=== PATIENT | male | born 1955 | race Caucasian/White ===

== ENCOUNTER 2019-06-05 09:36 | Day surgery (SDC) | payer BC ==
[~2019-06-05] VITALS: Ht 177.8 cm; Wt 92.3 kg
[2019-06-05] VITALS (7 sets, daily range): BP systolic 110–142; BP diastolic 43–75; PULSE 66–80; TEMP 97.4–98
[2019-06-05] MEDS ORDERED: ELIQUIS 5MG PO (11:18)
[2019-06-05] MEDS ORDERED: CELEXA 20MG20 MG/TAB PO (11:18)
[2019-06-05] MEDS ORDERED: TENORMIN 2525 MG/TAB PO (11:19)
[2019-06-05] MEDS ORDERED: OTEZLA PO (11:19)
[2019-06-05] MEDS ORDERED: ZYLOPRIM 300MG300 MG PO (11:20)
[2019-06-05] MEDS ORDERED: LIPITOR20 MG PO (11:20)
[2019-06-05] MEDS ORDERED: ZESTRIL 10MG10 MG PO (11:21)
[2019-06-05] MEDS ORDERED: JANUVIA 100MG100 MG PO (11:21)
[2019-06-05] MEDS ORDERED: VICTOZA6 MG/ML SQ (11:22)
--- NOTE | 2019-06-05 14:15 | NUR ---
Pts penis surgical dressing clean, dry and intact.
--- NOTE | 2019-06-05 14:15 | NUR ---
Pt returned via cart to [facility]. Report received from Zully PRE CODER. Pt A&O. VSS-see flowsheet. Pt has tolerated iced water. Denies pain or nausea. Given a muffin, ice cream and diet coke per request. Pt able to move BLE, reports numbness in his bottom, pelvic area and mildly in BLE. Side rails up, HOB elevated and call light in reach. , Esmer, brought to room.
--- NOTE | 2019-06-05 14:45 | NUR ---
Pt tolerated food and drink. Requesting to rest at this time. Reports still numbness to bottom, genitals, BLE and pelvis. Denies complaints or needs.
--- NOTE | 2019-06-05 15:59 | NUR ---
Pt reports continued numbness, some feeling in BLE, though bilateral heels completely numb. Attempted to stand per request. Pt unable to stand up straight or steady reporting he can't feel his heels at all. Pt lying back in bed with side rails up. present. Pt able to feel touch to toes, calves, thighs. Denies needs or complaints. Call light in reach. home management supervisor notified pt may need bed on floor to allow sensation to return prior to dc home.
--- NOTE | 2019-06-05 16:14 | NUR ---
Dr Calvin notified via cell phone at this time that pt will be transferring to 3rd floor until meets dc criteria to go home safely.
--- NOTE | 2019-06-05 16:27 | NUR ---
Report given to SHELBY Forbes on who will assume care for pt.
--- NOTE | 2019-06-05 16:45 | NUR ---
Pt taken via cart to bed in room 322-2. Pivot transfer to bed with SBA. Leidy RN in to see pt in room, present. Chart left at desk. Meal tray ordered.
--- NOTE | 2019-06-05 17:00 | NUR ---
States still has numbness in heels and buttocks from spinal. Took diet well.
--- NOTE | 2019-06-05 18:45 | NUR ---
Able to get out of bed without difficulty. Voided. VSS.
--- NOTE | 2019-06-05 19:15 | NUR ---
Pt. has met Discharge criteria. INT discontinued from lt. hand. Paper work reviewed with pt. Pt. voices understanding. Pt. escorted out by this nurse.
== END 2019-06-05 19:30 | disposition home or self-care (01) ==
LOC: SDCO 09:36
DX: N48.6 Induration penis plastica (principal); N52.1 Erectile dysfunction due to diseases classified elsewhere; I48.91 Unspecified atrial fibrillation; E11.9 Type 2 diabetes mellitus without complications; M10.9 Gout, unspecified; E78.5 Hyperlipidemia, unspecified; I10 Essential (primary) hypertension; E83.39 Other disorders of phosphorus metabolism; F43.10 Post-traumatic stress disorder, unspecified; L40.50 Arthropathic psoriasis, unspecified; M19.90 Unspecified osteoarthritis, unspecified site; Z79.01 Long term (current) use of anticoagulants; Z88.5 Allergy status to narcotic agent; Z88.0 Allergy status to penicillin; Z88.8 Allergy status to other drugs, medicaments and biological substances; Z83.3 Family history of diabetes mellitus; Z82.49 Family history of ischemic heart disease and other diseases of the circulatory system; Z79.4 Long term (current) use of insulin
CPT/HCPCS: J0690; J2250; J2405; J2704; J3010; J7030; J7040

== ENCOUNTER 2021-06-19 09:02 | Day surgery (SDC) | payer BC ==
[~2021-06-19] VITALS: Ht 177.8 cm; Wt 90.3 kg
[~2021-06-19 09:02] MED LIST: CELEXA 20MG20 MG/TAB PO; ELIQUIS 5MG PO; JANUVIA 100MG100 MG PO; LIPITOR20 MG PO; OTEZLA PO; TENORMIN 2525 MG/TAB PO; VICTOZA6 MG/ML SQ; ZESTRIL 10MG10 MG PO; ZYLOPRIM 300MG300 MG PO
[2021-06-19 10:02] LABS: BASO % 0.7 % (0.0-2.0); EOS # 0.1 K/mm3 (0.0-0.7); EOS % 2.6 % (0.0-4.0); GRAN # 2.3 K/mm3 (1.4-6.5); GRAN % 53.8 % (42.2-75.2); HEMATOCRIT 43.8 % (42.0-52.0); HEMOGLOBIN 15.2 g/dl (13.5-18.0); LYMPH # 1.4 K/mm3 (1.2-3.4); LYMPH % 32.9 % (20.0-51.0); MEAN CELL VOLUME 88 fl (80.0-100.0); MEAN CORPUSCULAR HEMOGLOBIN 31 pg (27-31); MEAN CORPUSCULAR HGB CONC 35 g/dl (33.0-37.0); MONO # 0.4 K/mm3 (0.1-0.6); MONO % 9.5 % (1.7-9.3); PLATELET COUNT 184 K/mm3 (130-400); RED BLOOD COUNT 4.97 M/mm3 (4.20-5.60); REDCELL DISTRIBUTION WIDTH-CV 12.1 % (11.5-14.5)
[2021-06-19 10:09] LABS: ALBUMIN 3.9 gm/dL (3.4-4.8); BILIRUBIN,TOTAL 0.9 mg/dL (0.2-1.2); CALCIUM 8.6 mg/dL (8.4-10.2); CREATININE, serum 0.98 mg/dL (0.72-1.25); POTASSIUM 4.1 mmol/L (3.5-4.5); TOTAL PROTEIN 6.6 gm/dL (6.2-8.1)
[2021-06-19] MEDS ORDERED: PRINZIDE 12.5 M1 TA1 PO (10:49)
[2021-06-19] MEDS ORDERED: GLUCOTROL 5M5 MG/TAB PO (10:52)
[2021-06-19 10:53] VITALS: BP 127/72; PULSE 71; TEMP 97.2
[2021-06-19 11:55] VITALS: BP 132/73; PULSE 65; TEMP 97.3
--- NOTE | 2021-06-19 11:55 | NUR ---
The patient arrived back to [facility] from the recovery room at this time. The patient appears alert and oriented and denies any pain or nausea at this time. The patient requests some diet pepsi and toast at this time. The patient's post procedure vital signs were started at this time. The patient's is at his bedside. Call light is within reach. Will continue to monitor the patient.
[2021-06-19 12:10] VITALS: BP 129/76; PULSE 66
--- NOTE | 2021-06-19 12:10 | NUR ---
The patient has spoke with Dr. Morgan and Mary Schaefer CRNA about the reason that his case was aborted. He was given the opportunity to ask questions.
[2021-06-19 12:16] VITALS: TEMP 98.5
[2021-06-19 12:25] VITALS: BP 117/53; PULSE 63
--- NOTE | 2021-06-19 12:25 | NUR ---
The patient appears to be tolerating the food and drink well. Vital signs appear stable. Call light is within reach. remains at his bedside. Will continue to monitor the patient.
[2021-06-19 12:40] VITALS: BP 116/69; PULSE 77
--- NOTE | 2021-06-19 12:40 | NUR ---
The patient voices a desire to be discharged home.
--- NOTE | 2021-06-19 12:55 | NUR ---
Discharge instructions were reviewed with the patient and his . They both verbalized understanding and have no questions for the nurse at this time. The patient's IV to his left hand was removed and a pressure dressing was applied to the site. The nurse instructed the patient to get dressed and notify the staff when he is ready be escorted out.
--- NOTE | 2021-06-19 13:10 | NUR ---
The patient was escorted out via wheelchair to a private vehicle by SHELBY Rodriguez. The patient's belongings and discharge paperwork were sent with him. The patient's is present to drive him home.
== END 2021-06-19 13:10 | disposition home or self-care (01) ==
LOC: SDCO 09:02
PROVIDERS: Surgery
DX: K81.1 Chronic cholecystitis (principal); T88.4XXA Failed or difficult intubation, initial encounter; E11.9 Type 2 diabetes mellitus without complications; Z79.84 Long term (current) use of oral hypoglycemic drugs; M10.9 Gout, unspecified; L40.9 Psoriasis, unspecified; I10 Essential (primary) hypertension; E78.00 Pure hypercholesterolemia, unspecified; E78.5 Hyperlipidemia, unspecified; E66.9 Obesity, unspecified; Z68.29 Body mass index [BMI] 29.0-29.9, adult; Z79.899 Other long term (current) drug therapy
CPT/HCPCS: J0330; J0690; J2250; J2405; J2704; J3010; J7030

== ENCOUNTER 2021-06-25 07:00 | Day surgery (SDC) | payer BC ==
[~2021-06-25] VITALS: Ht 177.8 cm; Wt 91.5 kg
[2021-06-25] VITALS (11 sets, daily range): BP systolic 105–142; BP diastolic 54–86; PULSE 71–78; TEMP 97–97.7
[~2021-06-25 07:00] MED LIST changes: +GLUCOTROL 5M5 MG/TAB PO; +PRINZIDE 12.5 M1 TA1 PO
[2021-06-25] MEDS ORDERED: NORCO 325 MG-51 TAB PO (10:17)
--- NOTE | 2021-06-25 11:05 | NUR ---
Patient returns to room 7 per cart from PACU accompanied by Irene RN and is awake and alert. IV fluids infusing and site is free of redness. Lap sites x4 on abdomen covered with exofin skin glue. Temp 97.4 and sats 95% on 2L. Spouse in room. Call light in reach. Allowed to rest.
--- NOTE | 2021-06-25 11:20 | NUR ---
Continues to rest without complaints.
--- NOTE | 2021-06-25 11:35 | NUR ---
Continues to rest.
--- NOTE | 2021-06-25 11:50 | NUR ---
More awake and is asking for something to drink and eat. States has pain at 5/10. Will get snack and medicate with [place].
--- NOTE | 2021-06-25 12:00 | NUR ---
Given diet Pepsi and water to drink and swallows without difficulty. Eating muffin. Denies nausea. Medicated with [place]ar[place] 5mg one tab. Spouse remains in the room.
--- NOTE | 2021-06-25 12:05 | NUR ---
Resting now and states that he is feeling sleepy.
--- NOTE | 2021-06-25 12:35 | NUR ---
Continues to rest without complaints.
--- NOTE | 2021-06-25 12:55 | NUR ---
Continues to rest. Tolerated muffin and diet Pepsi. States that the [place] was effective for pain. Spouse remains in the room.
--- NOTE | 2021-06-25 13:35 | NUR ---
Ambulatory to the bathroom and gait is steady. Voids and returns to room. IV discontinued and site is free of redness.
--- NOTE | 2021-06-25 13:55 | NUR ---
Patient dresses self. Dismissal instructions given and voices understanding of these.
--- NOTE | 2021-06-25 14:05 | NUR ---
Patient dismissed to home driven by spouse per private vehicle and taken to the front door per wheelchair and assisted into vehicle with instructions in hand.
== END 2021-06-25 14:05 | disposition home or self-care (01) ==
LOC: SDCO 07:00
DX: K81.1 Chronic cholecystitis (principal); I10 Essential (primary) hypertension; I48.91 Unspecified atrial fibrillation; E66.9 Obesity, unspecified; E11.9 Type 2 diabetes mellitus without complications; E78.00 Pure hypercholesterolemia, unspecified; G47.33 Obstructive sleep apnea (adult) (pediatric); K21.9 Gastro-esophageal reflux disease without esophagitis; M10.9 Gout, unspecified; M19.90 Unspecified osteoarthritis, unspecified site; Z90.89 Acquired absence of other organs; Z79.899 Other long term (current) drug therapy; Z79.891 Long term (current) use of opiate analgesic; Z79.84 Long term (current) use of oral hypoglycemic drugs; Z83.3 Family history of diabetes mellitus
CPT/HCPCS: J0330; J0690; J1100; J1170; J2250; J2405; J2704; J3010; J7030; J7120

== ENCOUNTER 2024-03-26 05:58 | Day surgery (SDC) | payer BC ==
[~2024-03-26] VITALS: Ht 177.8 cm; Wt 91.0 kg
[2024-03-26] VITALS (13 sets, daily range): BP systolic 109–148; BP diastolic 55–75; PULSE 67–106; TEMP 97.2–99.2
[~2024-03-26 05:58] MED LIST changes: +NORCO 325 MG-51 TAB PO
[2024-03-26] MEDS ORDERED: NS 10 ML IV ONE (06:54)
[2024-03-26] MEDS ORDERED: Lidocaine PF 2% (20 MG/ML) 5 ML VIAL ONE (06:54)
[2024-03-26] MEDS ORDERED: Midazolam 2 MG/2 ML VIAL ONE (06:54)
[2024-03-26] MEDS ORDERED: Tranexamic Acid 1,000 MG/10 ML VIAL ONE ×2 (06:54→10:24)
[2024-03-26] MEDS ORDERED: EPINEPHrine 1 MG/1 ML Ampule ONE (06:55)
[2024-03-26] MEDS ORDERED: Magnes Hydrox (MOM) 80 MG/ML 30 ML CUP PO PRN (07:15)
[2024-03-26] MEDS ORDERED: Bisacodyl 5 MG TAB PO PRN (07:15)
[2024-03-26] MEDS ORDERED: Mag/Al Hydrox/Simeth Susp 30 ML CUP PO PRN (07:15)
[2024-03-26] MEDS ORDERED: NS 1,000 ML IV SCH (07:15)
[2024-03-26] MEDS ORDERED: Ketorolac 15 MG/ML VIAL IV SCH (07:15)
[2024-03-26] MEDS ORDERED: Acetaminophen 500 MG TAB PO SCH (07:15)
[2024-03-26] MEDS ORDERED: oxyCODONE 5 MG TAB PO PRN (07:15)
[2024-03-26] MEDS ORDERED: Naloxone 0.4 MG/ML VIAL IV PRN (07:15)
[2024-03-26] MEDS ORDERED: Acetaminophen 500 MG TAB PO PRN (07:15)
[2024-03-26] MEDS ORDERED: Ondansetron 4 MG/2 ML VIAL IV PRN ×2 (07:15→08:00)
[2024-03-26] MEDS ORDERED: FLOMAX 0.40.4 MG/CAP PO (07:37)
--- NOTE | 2024-03-26 07:40 | NUR ---
Patient admitted to [facility] bay 8 at 0600. Admission assessments complete. Consent signed. 18G IV inserted into RFA on first attempt. LR infusing without difficulty. Medications, allergies, and pharmacy confirmed. at bedside. Blood sugar obtained. BLE marked and cleansed as ordered. Questions answered. warm blanket was provided.
[2024-03-26] MEDS ORDERED: Thrombin Human (Recombinant) 5,000 UNITS VIAL TP ONE (07:41)
[2024-03-26] MEDS ORDERED: NS 10 ML VIAL IJ ONE (07:41)
[2024-03-26] MEDS ORDERED: droPERidol 2.5 MG/ML 2 ML VIAL IV PRN (08:00)
[2024-03-26] MEDS ORDERED: HYDROmorphone 1 MG/1 ML SYRINGE [PACU/SDC ONLY] IV PRN (08:00)
[2024-03-26] MEDS ORDERED: fentaNYL 50 MCG/ML 1 ML SYRINGE/VIAL [PACU/SDC ONLY] IV PRN (08:00)
[2024-03-26] MEDS ORDERED: hydrALAZINE 20 MG/ML 1 ML VIAL IV PRN (08:00)
[2024-03-26] MEDS ORDERED: Ascorbic Acid 500 MG TAB PO SCH (09:00)
[2024-03-26] MEDS ORDERED: Sennosides/Docusate 8.6-50 MG TAB PO SCH (09:00)
[2024-03-26] MEDS ORDERED: Apixaban 2.5 MG TABLET PO SCH (09:00)
[2024-03-26] MEDS ORDERED: Magnes Hydrox (MOM) 80 MG/ML 30 ML CUP PO SCH (09:00)
[2024-03-26] MEDS ORDERED: dexAMETHasone 10 MG/ML VIAL ONE (09:03)
[2024-03-26] MEDS ORDERED: Insulin Lispro (HumaLOG) SQ SCH ×2 (11:15→17:00)
--- NOTE | 2024-03-26 12:10 | NUR ---
to room 332 per bed from PACU, awake and alert, IV infusing per dial-a-flow to right forearm, dressings to bilateal knees CD&I with ice packs in place, SCDS on bilaterally, has sensation to feet and is able to move feet and do ankle pumps, states pain is starting to return, informed him we would have to check vital signs before we could medicate again, verbalizes understanding,
--- NOTE | 2024-03-26 12:30 | NUR ---
medicated with scheduled toradol 15mg slow IV and tylenol 1000mg, he continues to state the pain is returning, will monitor now that toradol has been given
--- NOTE | 2024-03-26 13:00 | NUR ---
moves about in bed but also appears to rest between checks, full assessment completed, see interventions for further info, instructed he and his on ordering something to eat, verbalizes understanding
[2024-03-26] MEDS ORDERED: CIALIS5 MG PO (13:38)
[2024-03-26] MEDS ORDERED: GLUCOTROL10 MG PO (13:39)
--- NOTE | 2024-03-26 13:45 | NUR ---
states pain is getting better, medicated with roxicodone 10mg po in anticipation of geting up with therapy
--- NOTE | 2024-03-26 14:15 | NUR ---
has repositioned self to lying on right side, pillow placed between knees
[2024-03-26] MEDS ORDERED: ceFAZolin 2 G in Water For Injection,Sterile 20 ML IV SCH (15:00)
--- NOTE | 2024-03-26 15:00 | NUR ---
has repostioned himself to his left side, resting with eyes closed
--- NOTE | 2024-03-26 15:56 | NUR ---
physical and occupational therapy in to work with patient, assisted up to bathroom and was able to void and now is ambulating in the guy with steady gait
--- NOTE | 2024-03-26 16:20 | NUR ---
resting in recliner after working with therapy, T 99.2 and hR 101, encouraged to C&DB
[2024-03-26] MEDS ORDERED: Glucagon 1 MG VIAL IM PRN (17:00)
[2024-03-26] MEDS ORDERED: Dextrose 50% Water 25 GM/50 ML SYRINGE IV PRN (17:00)
[2024-03-26] MEDS ORDERED: Dextrose (Glucose) 15 GM (4 x 3.75 GM) Chewable TABLET PACK PO PRN (17:00)
--- NOTE | 2024-03-26 17:30 | NUR ---
blood sugar 402, FARRUKH Kahn notified and sliding scale insulin dose changed, remains up in recliner, insulin administered, he is eating and drinking qs and no N/V, IVF to INT, medicated with roxicodone 10mg po for c/os pain12/13
[2024-03-26] MEDS ORDERED: CEPHALEXIN500 M1 PO (18:11)
[2024-03-26] MEDS ORDERED: NORCO 325 MG-51 TAB PO (18:12)
[2024-03-26] MEDS ORDERED: ULTRAM 50MG TAB50 MG PO (18:12)
[2024-03-26] MEDS ORDERED: ELIQUIS 2.5 PO (18:13)
--- NOTE | 2024-03-26 18:40 | NUR ---
assisted up to bathroom, voided small amount, then out of bathroom and into bed
--- NOTE | 2024-03-26 18:57 | NUR ---
bedside shift report given to Layla RN
--- NOTE | 2024-03-26 20:00 | NUR ---
UPON SHIFT ASSESSMENT, DYLAN WAS AWAKE IN BED AND A&O X 4. BILATERAL KNEE SURGICAL SITES DRESSED IN GAUZE, KERLIX AND KILLIAN. KILLIAN WRAP CDI ON BOTH EXTREMITIES, HOWEVER, LT KNEE GAUZE AND KERLIX EXHIBITED SCANT RED DRAINAGE-NO ACTVE BLEEDING. PATIENT C/O 7/10 BLLE PAIN. DISTAL PULSES AND SENSATION GOOD. PATIENT ABLE TO STAND BEDSIDE TO USE URINAL. VS ARE WNL. CALL LIGHT WITHIN REACH AND BED ALARM ON.
--- NOTE | 2024-03-26 22:50 | NUR ---
RT FA IV INFILTERATED. NEW RT AC 22 G IV LINE INTIATED.
[2024-03-27] VITALS (9 sets, daily range): BP systolic 120–140; BP diastolic 65–69; PULSE 70–81; TEMP 98.2–98.7
[2024-03-27 06:49] LABS: HEMOGLOBIN 11.8 g/dl (13.5-18.0)
[2024-03-27 06:51] LABS: HEMATOCRIT 32.6 % (42.0-52.0)
[2024-03-27 07:06] LABS: CALCIUM 8.8 mg/dL (8.4-10.2); CREATININE, serum 1.35 mg/dL (0.72-1.25); POTASSIUM 4.5 mEq/L (3.5-4.5)
--- NOTE | 2024-03-27 07:28 | NUR ---
Pt doing well this morning. States pain is 4-5 at rest which is tolerable for him. Ice packs to both knees at this time. Discussed plan of care at this time. Pt knows how to order meals and plan to order breakfast soon. Informed him that I would bring in pain medication when his breakfast arrives as therapy would be by to get him up this morning. Discussed pts blood sugar and insulin vs PO medication. NO other questions at this time, call light within reach
[2024-03-27] MEDS ORDERED: Atorvastatin 20 MG TAB PO SCH (09:00)
--- NOTE | 2024-03-27 10:42 | NUR ---
Pt continues to do well. He has been up in the halls ambulating with therapy without any issues. Pt is steady on his feet using a walker. Pain tolerable
[2024-03-27] MEDS ORDERED: SITagliptin 100 MG TAB PO SCH (10:56)
[2024-03-27] MEDS ORDERED: glipiZIDE 5 MG TAB PO SCH ×2 (10:56→11:15)
--- NOTE | 2024-03-27 10:59 | NUR ---
Reversal Print Inspector met with patient to discuss discharge planning. Patient lives in [place] with his , Esmer (ph#[phone]) and sees Dr. Dye for primary care. Patient gets medications from [facility] with no difficulties and is insured by [facility]. Patient reported he is retired and normally independent with ADLS. Patient has a walker for recovery and stated he plans to ask therapy to help him adjust it to his height. Chantel plans to do outpatient therapy at [facility]. Patient stated he believes he has completed DPOA- documents that designate his , Esmer and son, Bonilla. Discharge Plan: Home with outpatient therapy
--- NOTE | 2024-03-27 12:47 | NUR ---
D: President & Ceo stopped by room on rounds. A: Pt was sitting on the edge of bed resting and content. Pt has no needs right now. P: President & Ceo informed pt that if he needed anything from the washing machine repairer area to let his nurse know. President & Ceo will follow up as needed.
--- NOTE | 2024-03-27 17:00 | NUR ---
Saw discharge orders for pt entered, had not seen Dr Lowe. I did call him, okay for him to go without being seen.
--- NOTE | 2024-03-27 17:50 | NUR ---
Reviewed discharge instructions with pt and his . Discussed prescription medications as well as therapy and follow up appointment with pt. INT removed from right AC. Pt escorted out via wheelchair
[2024-03-30] MEDS ORDERED: Celecoxib 200 MG CAP PO SCH (13:30)
== END 2024-03-27 17:53 | disposition home or self-care (01) ==
LOC: SURG 05:58 → SDCO 05:58 → SURG 12:10 → SDCO 12:10
PROVIDERS: Physician Assistant
DX: M17.0 Bilateral primary osteoarthritis of knee (principal); E11.319 Type 2 diabetes mellitus with unspecified diabetic retinopathy without macular edema; E11.9 Type 2 diabetes mellitus without complications; I10 Essential (primary) hypertension; E78.5 Hyperlipidemia, unspecified; N40.0 Benign prostatic hyperplasia without lower urinary tract symptoms; L40.9 Psoriasis, unspecified; Z79.84 Long term (current) use of oral hypoglycemic drugs; Z87.891 Personal history of nicotine dependence
CPT/HCPCS: OP; A4314; A9284; C1713; C1763; C1776; J0171; J0665; J0688; J0690; J1100; J1171; J1580; J1815; J1885; J2250; J2704; J2795